=== PATIENT | female | born 1995 | race Caucasian/White ===

== ENCOUNTER 2017-06-14 01:04 | Emergency (ER) | payer OTHER ==
--- NOTE | 2017-06-14 01:31 | ED ---
Female Urogenital HPI - General Chief complaint: Vaginal Bleeding Stated complaint: Vaginal Bleeding Time Seen by Provider: 06/14/17 01:12 Source: patient, RN notes reviewed Mode of arrival: ambulatory Limitations: no limitations - History of Present Illness Initial comments: 22-year-old female presents emergency for chief complaint of lower abdominal pain. Patient states she woke up from her sleep and noticed that she had some vaginal bleeding and lower abdominal pain. She states is worsened cramping. Patient states she had a menstrual cycle 2 weeks ago which was normal for her. Patient states she is very regular. Patient states that she is sexually active but has not been sexually active in several weeks. Patient states she is unsure if she was but she does not believe so. Patient denies fever, chills, nausea, vomiting diarrhea constipation. Patient had no prior abdominal surgeries. She states nothing makes the pain for moderate this time though she has not tried any medications. Last Menstrual Period: 05/25/17 - Related Data Previous Rx's Medication Instructions Recorded Ibuprofen [Motrin] 600 mg PO Q8HR PRN #30 tab 06/14/17 Allergies Allergy/AdvReac Type Severity Reaction Status Date / Time amoxicillin Allergy Rash/Hives Verified 06/14/17 01:09 Penicillins Allergy Rash/Hives Verified 06/14/17 01:09 Review of Systems ROS Statement: Those systems with pertinent positive or pertinent negative responses have been documented in the HPI. ROS Other: All systems not noted in ROS Statement are negative. Past Medical History Past Medical History: No Reported History History of Any Multi-Drug Resistant Organisms: None Reported Past Surgical History: No Surgical Hx Reported Past Psychological History: No Psychological Hx Reported Smoking Status: Current some day smoker Past Alcohol Use History: Occasional Past Drug Use History: None Reported General Exam Limitations: no limitations General appearance: alert, in no apparent distress, anxious Head exam: Present: atraumatic, normocephalic, normal inspection Respiratory exam: Present: normal lung sounds bilaterally. Absent: respiratory distress, wheezes, rales, rhonchi, stridor Cardiovascular Exam: Present: regular rate (Tachycardic on triage though patient was anxious at that time patient's heart rate is within normal limits upon exam), normal rhythm, normal heart sounds. Absent: systolic murmur, diastolic murmur, rubs, gallop, clicks GI/Abdominal exam: Present: soft, tenderness (Mild suprapubic tenderness), normal bowel sounds. Absent: distended, guarding, rebound, rigid Back exam: Absent: CVA tenderness (R), CVA tenderness (L) Skin exam: Present: warm, dry, intact, normal color. Absent: rash Course Vital Signs 06/14/17 01:10 Temperature 97.8 F Pulse Rate 121 H Respiratory 18 Rate Blood Pressure 184/107 O2 Sat by Pulse 98 Oximetry Medical Decision Making - Medical Decision Making 22-year-old female presented emergency department for lower abdominal pain abnormal vaginal bleeding. Patient most likely having dysfunctional uterine bleeding, mittelschmerz. Patient will be discharged with anti-inflammatories she felt better after Toradol. Return parameters were discussed. Patient does not want a pelvic. - Lab Data Result diagrams: 06/14/17 01:20 06/14/17 01:20 Lab Results 06/14/17 06/14/17 06/14/17 Range/Units 01:20 01:20 01:20 WBC 6.4 (4.0-11.0) k/uL RBC 4.55 (3.80-5.40) m/uL Hgb 13.4 (11.4-16.0) gm/dL Hct 40.7 (34.0-46.0) % MCV 89.4 (80.0-100.0) fL MCH 29.5 (25.0-35.0) pg MCHC 33.0 (31.0-37.0) g/dL RDW 12.1 (11.5-15.5) % Plt Count 250 (150-450) k/uL Neutrophils % 53 % Lymphocytes % 34 % Monocytes % 7 % Eosinophils % 2 % Basophils % 0 % Neutrophils # 3.4 (1.3-7.7) k/uL Lymphocytes # 2.2 (1.0-4.8) k/uL Monocytes # 0.5 (0-1.0) k/uL Eosinophils # 0.1 (0-0.7) k/uL Basophils # 0.0 (0-0.2) k/uL Sodium 139 (137-145) mmol/L Potassium 4.0 (3.5-5.1) mmol/L Chloride 104 (98-107) mmol/L Carbon Dioxide 22 (22-30) mmol/L Anion Gap 13 mmol/L BUN 14 (7-17) mg/dL Creatinine 0.70 (0.52-1.04) mg/dL Est GFR (MDRD) Af Amer >60 (>60 ml/min/1.73 sqM) Est GFR (MDRD) Non-Af >60 (>60 ml/min/1.73 sqM) Glucose 126 H (74-99) mg/dL Calcium 9.6 (8.4-10.2) mg/dL Total Bilirubin 0.5 (0.2-1.3) mg/dL AST 27 (14-36) U/L ALT 49 (9-52) U/L Alkaline Phosphatase 70 (38-126) U/L Total Protein 7.8 (6.3-8.2) g/dL Albumin 4.5 (3.5-5.0) g/dL Urine Color Urine Appearance (Clear) Urine pH (5.0-8.0) Ur Specific [place] (1.001-1.035) Urine Protein (Negative) Urine Glucose (UA) (Negative) Urine Ketones (Negative) Urine Blood (Negative) Urine Nitrite (Negative) Urine Bilirubin (Negative) Urine Urobilinogen (<2.0) mg/dL Ur Leukocyte Esterase (Negative) Urine RBC (0-5) /hpf Urine WBC (0-5) /hpf Ur Squamous Epith Cells (0-4) /hpf Urine Bacteria (None) /hpf Urine Mucus (None) /hpf Urine HCG, Qual Not Detected (Not Detectd) 06/14/17 Range/Units 01:20 WBC (4.0-11.0) k/uL RBC (3.80-5.40) m/uL Hgb (11.4-16.0) gm/dL Hct (34.0-46.0) % MCV (80.0-100.0) fL MCH (25.0-35.0) pg MCHC (31.0-37.0) g/dL RDW (11.5-15.5) % Plt Count (150-450) k/uL Neutrophils % % Lymphocytes % % Monocytes % % Eosinophils % % Basophils % % Neutrophils # (1.3-7.7) k/uL Lymphocytes # (1.0-4.8) k/uL Monocytes # (0-1.0) k/uL Eosinophils # (0-0.7) k/uL Basophils # (0-0.2) k/uL Sodium (137-145) mmol/L Potassium (3.5-5.1) mmol/L Chloride (98-107) mmol/L Carbon Dioxide (22-30) mmol/L Anion Gap mmol/L BUN (7-17) mg/dL Creatinine (0.52-1.04) mg/dL Est GFR (MDRD) Af Amer (>60 ml/min/1.73 sqM) Est GFR (MDRD) Non-Af (>60 ml/min/1.73 sqM) Glucose (74-99) mg/dL Calcium (8.4-10.2) mg/dL Total Bilirubin (0.2-1.3) mg/dL AST (14-36) U/L ALT (9-52) U/L Alkaline Phosphatase (38-126) U/L Total Protein (6.3-8.2) g/dL Albumin (3.5-5.0) g/dL Urine Color Yellow Urine Appearance Clear (Clear) Urine pH 6.0 (5.0-8.0) Ur Specific [place] 1.025 (1.001-1.035) Urine Protein Trace H (Negative) Urine Glucose (UA) Trace H (Negative) Urine Ketones Negative (Negative) Urine Blood Moderate H (Negative) Urine Nitrite Negative (Negative) Urine Bilirubin Negative (Negative) Urine Urobilinogen 2.0 (<2.0) mg/dL Ur Leukocyte Esterase Negative (Negative) Urine RBC 2 (0-5) /hpf Urine WBC 2 (0-5) /hpf Ur Squamous Epith Cells 1 (0-4) /hpf Urine Bacteria Rare H (None) /hpf Urine Mucus Few H (None) /hpf Urine HCG, Qual (Not Detectd) Disposition Clinical Impression: Dysfunctional uterine bleeding, Abdominal pain Disposition: HOME SELF-CARE Condition: Stable Instructions: Abdominal Pain (ED), Dysfunctional Uterine Bleeding (ED) Additional Instructions: Please return to the Emergency Department if symptoms worsen or any other concerns. Prescriptions: Ibuprofen [Motrin] 600 mg PO Q8HR PRN #30 tab PRN Reason: Pain Referrals: None,Stated [Primary Care Provider] - 1-2 days Time of Disposition: 03:38
[2017-06-14 01:43] LABS: Basophils % (A) 0 %; CH 30.4; CHCM 34.1; Eosinophils # (A) 0.1 k/uL (0-0.7); Eosinophils % (A) 2 %; HCT 40.7 % (34.0-46.0); HDW 2.55; HGB 13.4 gm/dL (11.4-16.0); Luc # (Auto) 0.19; Luc % (Auto) 3; Lymphocytes # (A) 2.2 k/uL (1.0-4.8); Lymphocytes % (A) 34 %; MCH 29.5 pg (25.0-35.0); MCV 89.4 fL (80.0-100.0); Mean Platelet Volume 7.3; Monocytes # (A) 0.5 k/uL (0-1.0); Monocytes % (A) 7 %; Neutrophils # (A) 3.4 k/uL (1.3-7.7); Neutrophils % (A) 53 %; RBC 4.55 m/uL (3.80-5.40); RDW 12.1 % (11.5-15.5); WBC 6.4 k/uL (4.0-11.0); WBC (Perox) 5.95
[2017-06-14 01:53] LABS: Appearance,Urine Clear (Clear); Bacteria,Urine Rare /hpf; Bilirubin,Urine Negative (Negative); Glucose,Urine (UA) Trace (Negative); Ketones,Urine Negative (Negative); Leukocyte Esterase,Urine Negative (Negative); Mucus,Urine Few /hpf; Nitrite,Urine Negative (Negative); Particle Count 6245; Protein,Urine Trace (Negative); RBC,Urine 2 /hpf (0-5); Specific Gravity,Urine 1.025 (1.001-1.035); Squamous Epithelial Cell,Urine 1 /hpf (0-4); UA Billing (MACRO vs. MICRO) MICRO; WBC,Urine 2 /hpf (0-5)
[2017-06-14 02:06] LABS: ALT 49 U/L (9-52); AST 27 U/L (14-36); Alkaline Phosphatase 70 U/L (38-126); Anion Gap 13 mmol/L; Blood Urea Nitrogen 14 mg/dL (7-17); Calcium 9.6 mg/dL (8.4-10.2); Carbon Dioxide 22 mmol/L (22-30); Chloride 104 mmol/L (98-107); Glucose 126 mg/dL (74-99); Non-African American GFR(MDRD) >60 (>60 ml/min/1.73 sqM); Sodium 139 mmol/L (137-145); Total Bilirubin 0.5 mg/dL (0.2-1.3); Total Protein 7.8 g/dL (6.3-8.2)
[2017-06-14] MEDS ORDERED: KETOROLAC 30 MG/ML 1 ML VIAL IVP STA (02:37)
--- NOTE | 2017-06-14 03:10 | US ---
EXAM: US Pelvis, Transvaginal CLINICAL HISTORY: Reason: Pain TECHNIQUE: Real-time transvaginal pelvic ultrasound (complete) with image documentation. Transvaginal imaging was used for better evaluation of the endometrium and adnexa. COMPARISON: No relevant prior studies available. FINDINGS: Uterus/cervix: Uterus: 7.2 x 2.9 x 3.2 cm Endometrial Stripe: 0.7 cm No myometrial mass. Right ovary: 3.6 x 1.9 x 1.8 cm. Multiple follicles. Normal blood flow. Left ovary: 3.2 x 2.9 x 2.1 cm. Multiple follicles. Normal blood flow. Free fluid: No free fluid. Bladder: Empty bladder which cannot be evaluated with this probe. IMPRESSION: No acute findings.
--- NOTE | 2017-06-14 03:42 | XR ---
EXAM: XR Abdomen, 1 View CLINICAL HISTORY: Reason: Pain TECHNIQUE: Frontal supine view of the abdomen/pelvis. COMPARISON: No relevant prior studies available. FINDINGS: Gastrointestinal tract: Unremarkable. No dilation. Organs: Two small opacities overlying the right renal contour. Right renal contour is low at the L2-4 levels. Likely represents nonobstructing renal calculi. No other obvious calculi overlying the urinary tract. Bones/joints: Unremarkable. IMPRESSION: Two small opacities overlying the right renal contour. Right renal contour is low at the L2-4 levels. Likely represents nonobstructing renal calculi.
[2017-06-14 03:46] VITALS: BP 136/62; PULSE 74; RESP 16; TEMP 98.6
== END 2017-06-14 03:47 | disposition home or self-care (01) ==
LOC: EC 01:04
DX: N93.8 Other specified abnormal uterine and vaginal bleeding (principal); R10.30 Lower abdominal pain, unspecified; F17.200 Nicotine dependence, unspecified, uncomplicated; Z88.0 Allergy status to penicillin
CPT/HCPCS: 36415; 80053; 85025; 81001; 81025; 74000; 93975; 76830; 99284; 96374; J1885